=== PATIENT | female | born 1985 | race Asian ===

== ENCOUNTER → 2017-11-29 15:40 | Outpatient (CLI) | payer OTHER, SELFPAY ==
--- NOTE | 2017-11-29 15:51 | CT_ITS ---
STUDY: CT ABDOMEN AND PELVIS WITH CONTRAST REASON FOR EXAM: Female, 32 years old. Right-sided abdominal pain. Suspected ovarian cyst. RADIATION DOSAGE (If Supplied By Facility): CTDIvol = ( 60.96 ) mGy, DLP = ( 2167.67 ) mGycm TECHNIQUE: Transaxial images were obtained post I.V. administration of 100 ml of Isovue 300 contrast, and with oral contrast. Sagittal and coronal images were reconstructed. Individualized dose optimization techniques were used for this CT. COMPARISON: None. FINDINGS: The visualized lung bases are unremarkable. The visualized portions of the heart are within normal limits. Normal liver. The patent portal vein diameter is 13 mm. Normal gallbladder and extrahepatic biliary system. Normal spleen. Normal pancreas. Normal bilateral adrenal glands. Normal right kidney. Normal left kidney. No hydronephrosis. Normal visualized stomach. Normal small intestine. Normal colon. The appendix is visualized and appears normal. Normal abdominal aorta. Normal inferior vena cava. Normal retroperitoneum. Normal urinary bladder. T-shaped intrauterine device noted within the endometrial cavity of the anteverted uterus. There is a complex 10.2 x 9.95 x 1.65 cm left ovarian mass with a 10.2 x 9.5 x 6.9 cm partially fatty component that has peripheral coarse calcifications, consistent with a dermoid. This resides anterior to the uterine fundus near the midline, resting on the dome of the urinary bladder. In the area of the right ovary, there is a moderately defined 3.4 x 2.65 x 3.35 cm low-density that could be a borderline, located cyst. Normal abdominal wall. There are degenerative changes of the visualized lumbar spine, including posterior endplate osteophytes and posterior marginal calcification along a 5 mm wide based posterior L3-[address]/Abdomen/Pelvis WITH Contrast IMPRESSION: 1. 10.2 cm complex left ovarian mass with a large low-density fatty component, consistent with a dermoid. 2. 3.4 cm low-density right ovarian lesion, possibly a cyst. Differential includes missed ovarian torsion, hematoma, tubo-ovarian abscess, or neoplasm. 3. T-shaped IUD in the endometrial cavity of the normal size uterus. 4. Wide-based 5 mm posterior L3-4 disc protrusion with marginal calcifications. Electronically Signed: Jm Avendaño MD at 14:44 EDT , Service support ,
== END ==
PROVIDERS: Visit Provider Obstetrics & Gynecology
DX: N83.291 Other ovarian cyst, right side (principal)
CPT/HCPCS: 74177

== ENCOUNTER 2017-12-08 11:15 | Day surgery (SDC) | payer OTHER, SELFPAY ==
[2017-12-08] VITALS (7 sets, daily range): BP systolic 129–149; BP diastolic 70–81; PULSE 61–89; RESP 14–16; TEMP 36.4–37; O2SAT 95–100; BMI 37.3
--- NOTE | 2017-12-08 | OV_PTH ---
PATIENT: BRENNA ACOSTA LOC: [facility] [place] U#:[id number] AGE/SX: 32/F ROOM: RE12/08/[address]: Dr. Ny Kennedy MD : 1985 BED: DIS: 12/08/2017 SPEC #: [id number] RECD: 12/09/17 13:12 STATUS: CAROL ACOSTA #: [id number] CYNDEE: 12/08/17 00:[address]: Ny Ayers DEPT: SURGICAL PATHOLOGY RECD BY: Rafat Sheldon ENTERED: 12/09/17 13:12 SP TYPE: OVARY OTHR DR: Lizette Primary Care Phys Tissues: Left ovary Procedures: Decalcification bone/plaque Surgery Specimen Level V HEADER OPERATION: Laparoscopic left oophorectomy PRE-OP DIAGNOSIS: Right ovarian cyst TISSUE SUBMITTED: Left ovary MICROSCOPIC DIAGNOSIS Left ovary, oophorectomy: Mature cystic teratoma, dermoid cyst (10 cm in greatest dimension). SJ:bertha 12/12/17 MICROSCOPIC DESCRIPTION Slides are reviewed. GROSS DESCRIPTION Received in fixative is one container labeled with the patient's name and designated left ovary. The specimen consists of a previously opened, partially ruptured cystic ovary measuring 10 x 8 x 7 cm and weighing 130 gm. The ovary is filled with hair and sebum-like material. A focal solid area is noted measuring 4 x 3 x 2 cm. A focal area of bone formation is also noted. Sections of the solid area reveal yellowish cut surface. [place] sections are submitted in six cassettes. Cassettes 5 & 6 contain the bony area and submitted after decalcification. Cassettes 1 & 2 contain the solid area of the tumor. / FAUSTINO:bertha 12/09/17 TC:1 CPT: 74602, 73324
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
[2017-12-08 11:44] LABS: Internal QC Validated? YES +Cl - CLEAR BKGD; Pregnancy, Urine Negative Negative
--- NOTE | 2017-12-08 15:19 | DCINST_ITS ---
- Discharge Diagnoses Current Active Problems: Dermoid cyst, Abdominal pain Reason(s) for Visit for Discharge Instructions: Laparoscopic left oophorectomy (ovary removal) You will use the following diet at home:: No restrictions Your food should be the consistency of: Regular Discharge Activity: Return to Normal Activity, May not drive while taking narcotic pain medications., May Shower, - - No tub bath for 2 weeks, Do not [address] anything in the vagina (no douching, no tampons, no intercourse) May resume sexual activity in: 4 weeks Lifting Restrictions: 10 lb Call your doctor if your incision/area has: Continuous Slow Oozing, Sudden Increased Bleeding, Increased Pain/ Swelling, Increased Redness Call your doctor if you observe: Fever of 101 or Higher, Inability to urinate, Inability to have a bowel movement, Using more than one pad per hour, Shortness of breath, Chest pain, Calf discomfort, Uncontrolled pain Suture Line Care: Avoid Pulling/Pushing Remove Dressing in (days):: 1 - 24 hours Cleanse incision/area with: Soap & Water Instructions: Discharge Instructions for Oophorectomy Allergies/Adverse Reactions: Allergies No Known Allergies Allergy (Verified 12/06/17 11:56) Medications to take at Discharge Docusate Sodium [Colace] 100 mg PO BID PRN PRN #60 capsule 12/08/17 Ibuprofen 600 mg PO TID PRN #30 tablet 12/08/17 Oxycodone [Oxyir] 5 mg PO Q6H PRN PRN 3 Days #12 tablet 12/08/17 The following prescriptions were given: Oxycodone [Oxyir] 5 mg PO Q6H PRN PRN 3 Days #12 tablet PRN Reason: Severe Pain (6-12/21) Docusate Sodium [Colace] 100 mg PO BID PRN PRN #60 capsule PRN Reason: Constipation Ibuprofen 600 mg PO TID PRN #30 tablet PRN Reason: Pain Primary Care Physician: Care Physician,No Primary [Primary Care Provider] - Test Results: Test results from this visit will be discussed in further detail at your follow- up appointment, if applicable. Please Follow Up With: Ny Thomas MD When: 1-2 weeks
--- NOTE | 2017-12-08 15:19 | PCM.OPRPT ---
Problem List (1) Dermoid cyst Status: Acute Comment: Left ovary (2) Abdominal pain Status: Acute Qualifiers: Abdominal location: right lower quadrant Qualified Code(s): R10.31 - Right lower quadrant pain (3) S/P oophorectomy Status: Acute Comment: Left Report of Operation Date of Procedure: 12/08/17 Pre-Operative Diagnosis: Right ovarian dermoid cyst, abdominal pain Post-Operative Diagnosis: Left ovarian dermoid cyst, abdominal pain Surgery/Procedure Performed:: Laparoscopic left oophorectomy Description of Surgical Findings:: Left dermoid cyst. Simple cyst on the right ovary. Uterus and tubes normal-appearing. nurse behavioral health care: Dolores Gerard nurse behavioral health care: Gary Raphael Type of Anesthesia:: General, Local Anesthesiologist: Jamison Ingram Specimen's removed: left ovary Drains: 50 ml Estimated Blood Loss (mL): 15 ml Fluids Replaced: 1700 ml Description of Procedure: Indications: Patient is a 32-year-old nulligravida with a history of abdominal pain found to have a lady 9-10 cm complex right ovarian cyst on ultrasound. CT of the abdomen and pelvis suggested findings are consistent with a benign teratoma. She was advised to proceed with surgery. Risks, benefits, indications and alternatives to laparoscopy were reviewed. Eater: The patient was taken to the operating room and signed and was performed. She is placed in dorsal supine position and induced under general anesthesia and intubated. She was then placed into dorsal lithotomy and her arms were tucked at her sides. An examination under anesthesia was performed. The abdomen and perineum were prepped and draped in sterile fashion. Monreal catheter was placed into the bladder the patient was placed into high lithotomy. The weighted speculum was placed into the vagina cervix visualized and grasped the anterior cervical lip using a single-tooth tenaculum. Notably there were 2 Mirena IUD strings that were visualized. The uterus was sounded to 8 cm and a HUMI uterine manipulator was placed and secured. The tenaculum was removed from the cervix. The speculum removed from the vagina. Patient was placed into low lithotomy attention was then turned to the abdomen. An infraumbilical incision was made using a scalpel. The Veress needle was placed with successful hanging drop test and no aspirate. The abdomen was insufflated to 15 mmHg. The Veress needle was removed and a 5 mm port was placed under laparoscopic guidance. Incision was made proximal at Stevens's point along the midclavicular line and a 5 mm port was also placed at this site and laparoscope was introduced through this port. 2 additional incisions and 5 mm ports were placed in one in the right lower quadrant and one in the left lower quadrant. The umbilical port was replaced by 12 mm port. The cyst was sizable and spontaneously ruptured on initial palpation extruding copious sebaceous fluid. The cyst rupture site was expanded bluntly and the cyst fluid suctioned. The cyst notably it appeared to be extending from the left adnexa and was the left ovary. There was no normal-appearing ovary following inspection. There did appear to be a dense adhesion of the the sigmoid colon to an approximately 1 cm portion of the ovarian cortex. I did attempt to dissect this bluntly and sharply with minimal separation of the tissues. At this time I decided to proceed with oophorectomy. The superficial ovarian cortex at this site was incised and dissected from the underlying cyst and cut. The left uterine ovarian ligament followed by the mesovarium was serially clamped, coagulated and cut being the left ovary. The tube remained. An Endo Catch bag was introduced into the abdomen and the ovary retrieved. The Endo Catch bag with specimen was brought up to the level of the umbilical incision which was further extended along with the fascia. The bag was opened at the level of the subcutaneous tissue and the ovary was removed serially retracted from the Endo Catch bag using. Copious sebaceous fluid and hair noted. The umbilical incision was irrigated. The fascia was closed using 0 Vicryl. The subcutaneous tissue at this site was reapproximated also using 0 Vicryl. Attention was then turned intra-abdominally the abdomen was reinsufflated and copious irrigation was performed with approximately 2 L of normal saline. There was good hemostasis. The abdomen was desufflated and trochars removed. The incisions were closed using 4-0 Monocryl subcuticular sutures. Steri-Strips and OpSite were placed over the incisional sites. Attention was turned vaginally and the HUMI was removed. Rate appeared to still be in place. The tenaculum site was hemostatic following a few minutes of compression. The procedure was complete. The patient was then placed into dorsal supine position, awakened, extubated and transferred to the recovery room without complication. Sponge and needle counts were correct x2. The patient tolerated the procedure well. - Complications None - Admit VTE Documentation VTE Present on Admission: No VTE Mechan Device Prophylaxis: SCD's VTE Pharm Prophylaxis ordered?: No
[2017-12-08] MEDS: Bupivacaine Mpf 0.5% 30 ML VIAL (15:21)
--- NOTE | 2017-12-08 15:34 | OP.PCM_ITS ---
Problem List (1) Dermoid cyst Status: Acute Comment: Left ovary (2) Abdominal pain Status: Acute Qualifiers: Abdominal location: right lower quadrant Qualified Code(s): R10.31 - Right lower quadrant pain (3) S/P oophorectomy Status: Acute Comment: Left Report of Operation Date of Procedure: 12/08/17 Pre-Operative Diagnosis: Right ovarian dermoid cyst, abdominal pain Post-Operative Diagnosis: Left ovarian dermoid cyst, abdominal pain Surgery/Procedure Performed:: Laparoscopic left oophorectomy Description of Surgical Findings:: Left dermoid cyst. Simple cyst on the right ovary. Uterus and tubes normal- appearing. chemistry quality control technician: Dolores Gerard chemistry quality control technician: Gary Raphael Type of Anesthesia:: General, Local Anesthesiologist: Jamison Ingram Specimen's removed: left ovary Drains: 50 ml Estimated Blood Loss (mL): 15 ml Fluids Replaced: 1700 ml Description of Procedure: Indications: Patient is a 32-year-old nulligravida with a history of abdominal pain found to have a lady 9-10 cm complex right ovarian cyst on ultrasound. CT of the abdomen and pelvis suggested findings are consistent with a benign teratoma. She was advised to proceed with surgery. Risks, benefits, indications and alternatives to laparoscopy were reviewed. Eater: The patient was taken to the operating room and signed and was performed. She is placed in dorsal supine position and induced under general anesthesia and intubated. She was then placed into dorsal lithotomy and her arms were tucked at her sides. An examination under anesthesia was performed. The abdomen and perineum were prepped and draped in sterile fashion. Monreal catheter was placed into the bladder the patient was placed into high lithotomy. The weighted speculum was placed into the vagina cervix visualized and grasped the anterior cervical lip using a single-tooth tenaculum. Notably there were 2 Mirena IUD strings that were visualized. The uterus was sounded to 8 cm and a HUMI uterine manipulator was placed and secured. The tenaculum was removed from the cervix. The speculum removed from the vagina. Patient was placed into low lithotomy attention was then turned to the abdomen. An infraumbilical incision was made using a scalpel. The Veress needle was placed with successful hanging drop test and no aspirate. The abdomen was insufflated to 15 mmHg. The Veress needle was removed and a 5 mm port was placed under laparoscopic guidance. Incision was made proximal at Stevens's point along the midclavicular line and a 5 mm port was also placed at this site and laparoscope was introduced through this port. 2 additional incisions and 5 mm ports were placed in one in the right lower quadrant and one in the left lower quadrant. The umbilical port was replaced by 12 mm port. The cyst was sizable and spontaneously ruptured on initial palpation extruding copious sebaceous fluid. The cyst rupture site was expanded bluntly and the cyst fluid suctioned. The cyst notably it appeared to be extending from the left adnexa and was the left ovary. There was no normal- appearing ovary following inspection. There did appear to be a dense adhesion of the the sigmoid colon to an approximately 1 cm portion of the ovarian cortex. I did attempt to dissect this bluntly and sharply with minimal separation of the tissues. At this time I decided to proceed with oophorectomy. The super ficial ovarian cortex at this site was incised and dissected from the underlying cyst and cut. The left uterine ovarian ligament followed by the mesovarium was serially clamped, coagulated and cut being the left ovary. The tube remained. An Endo Catch bag was introduced into the abdomen and the ovary retrieved. The Endo Catch bag with specimen was brought up to the level of the umbilical incis ion which was further extended along with the fascia. The bag was opened at the level of the subcutaneous tissue and the ovary was removed serially retracted from the Endo Catch bag using. Copious sebaceous fluid and hair noted. The umbilical incision was irrigated. The fascia was closed using 0 Vicryl. The subcutaneous tissue at this site was reapproximated also using 0 Vicryl. Attention was then turned intra-abdominally the abdomen was reinsufflated and copious irrigation was performed with approximately 2 L of normal saline. There was good hemostasis. The abdomen was desufflated and trochars removed. The incisions were closed using 4-0 Monocryl subcuticular sutures. Steri-Strips and OpSite were placed over the incisional sites. Attention was turned vaginally and the HUMI was removed. Rate appeared to still be in place. The tenaculum site was hemostatic following a few minutes of compression. The procedure was complete. The patient was then placed into dorsal supine position, awakened, extubated and transferred to the recovery room without complication. Sponge and needle counts were correct x2. The patient tolerated the procedure well. - Complications None - Admit VTE Documentation VTE Present on Admission: No VTE Mechan Device Prophylaxis: SCD's VTE Pharm Prophylaxis ordered?: No
== END 2017-12-08 17:50 | disposition home or self-care (01) ==
LOC: SDC 11:16 → AC 11:18
PROVIDERS: Referring Provider Obstetrics & Gynecology; Visit Provider Obstetrics & Gynecology
PROC: (CPT 58661; principal; 2017-12-08 14:15)
DX: D27.1 Benign neoplasm of left ovary (principal); D27.0 Benign neoplasm of right ovary; K21.9 Gastro-esophageal reflux disease without esophagitis; Z97.5 Presence of (intrauterine) contraceptive device; Z87.891 Personal history of nicotine dependence
CPT/HCPCS: 58661; 81025; 86850; 86900; 88305; 88307; 88311; J7120; C1760; J2405